=== PATIENT | male | born 1980 | race Caucasian/White ===

== ENCOUNTER 2021-02-10 05:02 | Emergency (ER) | payer OTHER ==
--- NOTE | 2021-02-10 05:14 | ED Physician Documentation ---
PD HPI HEADACHE - Stated complaint Stated Complaint: POS SZ, HEADACE - Chief complaint Chief Complaint: Neuro - History obtained from History obtained from: Patient, EMS - Additional information Additional information: Patient comes emergency department chief complaint of seizure-like activity x2 tonight. Patient states he does not have any recollection of it, but that his noticed that he was thrashing about in bed. She woke him up and the patient decided to go back to sleep and try to finish out the night. However, the shaking happened again and the patient's time the incident and took a video of it. It lasted approximately a minute and 40 seconds from the time the time was turned on to one was turned off. Patient has brought the video, which appears to show the patient laying on his side with his hand resting beside him on the pillow, and shaking occurring that seems to be coming more from the legs, which are hidden by the blankets and partially out of the frame of the picture. Patient denies any history of seizure disorder or any seizure-like activity. He has a history of a traumatic brain injury from his time in the , but no recent head injury. He states he has been sleeping well and has not been ill. He is on terbinafine for fungal toenail infection, but is not aware of seizure activity being a significant rash. No alcohol or drugs. The patient states that he did feel mentally "foggy" after the episode, and noticed that he had a bad headache. The patient does note that he has seen ENT for some sinus issues and was told that he has some sort of soft tissue growth up inside his right nasal passage, but he is not sure what this is, as the restaurant manager has been waiting to discuss it with him until he can get a sinus CT. This is awaiting prior authorization from [facility]. Patient is otherwise healthy and has no other complaints at this time. He does have a history of PTSD related to his time in the . 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 Review of Systems Ten Systems: 10 systems reviewed and negative Constitutional: reports: Reviewed and negative Eyes: reports: Reviewed and negative Ears: reports: Reviewed and negative Nose: reports: Reviewed and negative Throat: reports: Reviewed and negative Cardiac: reports: Reviewed and negative Respiratory: reports: Reviewed and negative GI: reports: Reviewed and negative : reports: Reviewed and negative Skin: reports: Reviewed and negative Musculoskeletal: reports: Reviewed and negative Neurologic: reports: Seizure Psychiatric: reports: Reviewed and negative Endocrine: reports: Reviewed and negative Immunocompromised: reports: Reviewed and negative PD PAST MEDICAL HISTORY - Present Medications Home Medications: Ambulatory Orders Medication Instructions Recorded Confirmed Terbinafine [Lamisil] 250 mg PO DAILY 02/10/21 02/10/21 - Allergies Allergies/Adverse Reactions: Allergies Allergy/AdvReac Type Severity Reaction Status Date / Time No Known Drug Allergies Allergy Verified 02/10/21 05:07 PD ED PE NORMAL - Vitals Vital signs reviewed: Yes - General General: Alert and oriented X 3, No acute distress, Well developed/nourished - HEENT HEENT: Atraumatic, PERRL, EOMI, Moist mucous membranes - Neck Neck: Supple, no meningeal sign - Cardiac Cardiac: RRR, No murmur, Strong equal pulses - Respiratory Respiratory: No respiratory distress, Clear bilaterally - Abdomen Abdomen: Soft, Non tender, Non distended - Derm Derm: Normal color, Warm and dry, No rash - Extremities Extremities: No deformity, No edema, No calf tenderness / cord - Neuro Neuro: Alert and oriented X 3, steel heater 2-12 intact, No motor deficit, No sensory deficit, Normal speech - Psych Psych: Normal mood, Normal affect Results - Vitals Vitals: Vital Signs - 24 hr 02/10/21 02/10/21 02/10/21 05:07 05:49 06:15 Temperature 36.5 C Heart Rate 90 85 Respiratory 16 18 Rate Blood Pressure 150/100 H 141/105 H 139/95 H O2 Saturation 99 99 Oxygen O2 Source Room air - EKG (time done) 0516 Rate: Rate (enter#) Rhythm: NSR (83) [place]: Normal Intervals: Normal MS QRS: Normal Ischemia: Normal ST segments Compare to prior EKG: Old EKG unavailable Computer interpretation: Agree with computer - Labs Labs: Laboratory Tests 02/10/21 02/10/21 05:25 05:25 WBC 8.0 RBC 5.43 Hgb 15.7 Hct 48.1 MCV 88.6 MCH 28.9 MCHC 32.6 RDW 13.6 Plt Count 400 MPV 9.0 Neut # (Auto) 3.8 Lymph # (Auto) 2.9 [place] # (Auto) 0.7 Eos # (Auto) 0.5 Baso # (Auto) 0.0 Absolute Nucleated RBC 0.00 Nucleated RBC % 0.0 Sodium 136 Potassium 3.9 Chloride 101 Carbon Dioxide 24 Anion Gap 11.0 BUN 13 Creatinine 1.0 Estimated GFR (MDRD) 83 L Glucose 99 Calcium 9.2 Total Bilirubin 0.7 AST 30 ALT 43 Alkaline Phosphatase 70 Total Protein 8.4 H Albumin 4.9 Globulin 3.5 Albumin/Globulin Ratio 1.4 Lipase 32 Ethyl Alcohol < 5.0 - Rads (name of study) CT head Radiology: Final report received, EMP read indepedently, See rad report (neg) CT sinuses Radiology: Final report received, EMP read indepedently, See rad report (Mild mucosal sinus disease with nasal septal deviation.) PD MEDICAL DECISION MAKING - ED course Complexity details: reviewed results, re-evaluated patient, considered differential, d/w patient ED course: The patient was given IV fluids and worked up with labs, EKG, and head CT. Departure - Departure Disposition: 01 Home, Self Care Clinical Impression: Witnessed seizure-like activity Condition: Stable Instructions: ED Seizure New Onset Unk Cause Comments: Your labs look fantastic, and your head CT is unremarkable. Your EKG also looks great. The activity noted on the video is somewhat atypical of a grand mal seizure and that yourUpper body and face/neck seem to be relatively unaffected. It is not clear what caused the episode she had this morning, but the next Step in investigation is to follow-up with neurology and your primary doctor to discuss having an EEG done. This is a brainwave study that looks for abnormalities in signal transmission in your brain that can indicate a predisposition to seizures. In general, with the first episode of seizure-like activity, we do not start patients on antiseizure medications, as the seizure activity is often not repeated for him long time if ever. Please be sure you drink lots of water and get plenty of rest and good food to eat. If you have further episodes like this, please seek medical reevaluation. You have been given a dose of medicine here in the emergency department to calm any potential hyperactivity of the nerves of your brain after this incident and allow them to settle back into baseline. Please call your doctor's office first thing today t o get a follow-up appointment set up.
[2021-02-10] MEDS ORDERED: SODIUM CHLORIDE 0.9% 1,000 ML IV STA (05:20)
[2021-02-10 05:31] LABS: BASOPHILS % (AUTO) 0.5 %; EOSINOPHILS # (AUTO) 0.5 10^3/uL (0.0-0.7); EOSINOPHILS % (AUTO) 6.1 %; HCT - HEMATOCRIT 48.1 % (42.0-52.0); HGB - HEMOGLOBIN 15.7 g/dL (14.0-18.0); LYMPHOCYTES # (AUTO) 2.9 10^3/uL (1.5-3.5); LYMPHOCYTES % (AUTO) 36.5 %; MEAN CORPUSCULAR HEMOGLOBIN 28.9 pg (27.0-31.0); MEAN CORPUSCULAR HGB CONC 32.6 g/dL (32.0-36.0); MEAN CORPUSCULAR VOLUME 88.6 fL (80.0-94.0); MONOCYTES # (AUTO) 0.7 10^3/uL (0.0-1.0); MONOCYTES % (AUTO) 8.7 %; NEUTROPHILS # (AUTO) 3.8 10^3/uL (1.5-6.6); PLT - PLATELET COUNT 400 10^3/uL (130-450); RED BLOOD COUNT 5.43 10^6/uL (4.70-6.10); RED CELL DISTRIBUTION WIDTH 13.6 % (12.0-15.0)
[2021-02-10 05:43] LABS: ALBUMIN 4.9 g/dL (3.2-5.5); ALBUMIN/GLOBULIN RATIO 1.4 (1.0-2.2); ALKALINE PHOSPHATASE 70 IU/L (42-121); ALT ALANINE AMINOTRANSFERASE 43 IU/L (10-60); AST ASPARTATE AMINOTRANSFERASE 30 IU/L (10-42); BILIRUBIN,TOTAL 0.7 mg/dL (0.2-1.0); BUN - BLOOD UREA NITROGEN 13 mg/dL (6-20); CALCIUM 9.2 mg/dL (8.5-10.3); CARBON DIOXIDE - CO2 24 mmol/L (21-32); CHLORIDE 101 mmol/L (101-111); ETOH - ETHANOL < 5.0 mg/dL; GFR - MDRD 83 (>89); GLUCOSE 99 mg/dL (70-100); LIPASE 32 U/L (22-51); POTASSIUM 3.9 mmol/L (3.5-5.0); SODIUM 136 mmol/L (135-145); TOTAL PROTEIN 8.4 g/dL (6.7-8.2)
[2021-02-10] MEDS ORDERED: IOVERSOL 320 100 ML VIAL IVP ONE (05:56)
[2021-02-10] MEDS ORDERED: diazePAM 5 MG TABLET PO STA (06:59)
[2021-02-10 07:10] VITALS: BP 129/92
--- NOTE | 2021-02-10 07:36 | CT Report ---
PROCEDURE: Sinuses INDICATIONS: nasal congestion, mass in R nasal passage TECHNIQUE: Noncontrast 3.0 mm axial images acquired from the frontal sinuses to the mid-sella, with coronal and sagittal reformats. For radiation dose reduction, the following was used: automated exposure control , adjustment of mA and/or kV according to patient size. COMPARISON: None. FINDINGS: Image quality: Excellent. Sinuses: There is minimal right and minimal to mild left maxillary mucosal thickening. Minimal scatt ered areas of mucosal thickening are present within the frontal and sphenoid sinuses. Minimal to mild scattered mucosal thickening is present within the ethmoid air cells. No fluid levels. No mass is id entified within the nasal cavity. However, there is mild appearance of protrusion of the turbinates a nd nasal cavity. Ostiomeatal Complexes: Ostiomeatal complexes are patent. There is narrowing of the left ostiomeatal complex secondary to prominent leftward nasal septal deviation and Rodney cell. There is narrowing of the right ostiomeatal complex secondary to a Rodney cell. Miscellaneous: Visualized intra-orbital contents are normal. There is aeration of the vertical conch a the middle turbinates bilaterally. There is mild hypertrophy of the left inferior nasal turbinate o f uncertain clinical significance.. Prominent leftward nasal septal deviation. IMPRESSION: Sinus disease as above. Narrowing of the ostiomeatal complexes secondary to nasal septal deviation and Rodney cells as above. No discrete nasal mass. However, there is noted to be protrusion of the nasal turbinates into the rig ht nasal cavity. The above findings are concordant with preliminary report. Reviewed by: Emily Melgar MD on 02/10/2021 7:35 AM PST Approved by: Emily Melgar MD on 02/10/2021 7:35 AM PST Station ID: [id number]
--- NOTE | 2021-02-10 07:38 | CT Report ---
PROCEDURE: HEAD WO INDICATIONS: seizure-like activity, first time TECHNIQUE: Noncontrast 4.5 mm thick angled axial sections acquired from the foramen magnum to the vertex. For r adiation dose reduction, the following was used: automated exposure control, adjustment of mA and/or kV according to patient size. COMPARISON: None. FINDINGS: Image quality: Excellent. CSF spaces: Basal cisterns are patent. No extra-axial fluid collections. Ventricles are normal in size and shape. Brain: No midline shift. No intracranial masses or hemorrhage. Louise-white matter interface is norm al. Skull and face: Calvarium and visualized facial bones are intact, without suspicious lesions. Sinuses: Visualized sinuses and mastoids are clear. IMPRESSION: 1. No acute intracranial process. The above findings are concordant with preliminary report. Reviewed by: Emily Melgar MD on 02/10/2021 7:36 AM [facility] Approved by: Emily Melgar MD on 02/10/2021 7:36 AM [facility] Station ID: [id number]
== END 2021-02-10 07:10 | disposition home or self-care (01) ==
LOC: ED 05:02
DX: R56.9 Unspecified convulsions (principal)
CPT/HCPCS: 36415; 70450; 70486; 80053; 80320; 83690; 85025; 93005; 99284; A9270; Q9967

== ENCOUNTER 2021-04-09 12:50 | Outpatient (CLI) | payer OTHER | END 2021-04-09 12:51 | disposition critical access hospital (66) | LOC: EMS 12:50 | DX: R56.9 Unspecified convulsions (principal) | CPT/HCPCS: A0425; A0429 ==

== ENCOUNTER 2021-04-09 13:20 | Emergency (ER) | payer OTHER ==
--- NOTE | 2021-04-09 13:51 | ED Physician Documentation ---
PD HPI SEIZURE - Stated complaint Stated Complaint: SZ - Chief complaint Chief Complaint: Neuro - History obtained from History obtained from: Patient, EMS - Additional information Additional information: 40yo male presents via EMS after a seizure. Had aura with headache followed by twitching and foaming at the mouth. Then had reported seizure with post ictal period. Had first sz 02/12, neg ED workup here. Had sz 2 weeks ago and again last night. 5 total since January. Hx TBI 2004 in the . Prehospital FSBS 77. No neuro followup yet. Recent weight loss undergoig w/u for that. PD PAST MEDICAL HISTORY - Past Medical History Cardiovascular: None Respiratory: None, Sleep apnea, CPAP use Neuro: Head injury : None HEENT: None Psych: Post traumatic stress disorder Musculoskeletal: None Derm: Other - Past Surgical History Past Surgical History: No Ortho: Shoulder arthroplasty, Spine surgery - Present Medications Home Medications: Ambulatory Orders Medication Instructions Recorded Confirmed Terbinafine [Lamisil] 250 mg PO DAILY 02/10/21 02/10/21 Divalproex Sodium [Depakote ER] 500 mg PO BID #180 tab 04/09/21 - Allergies Allergies/Adverse Reactions: Allergies Allergy/AdvReac Type Severity Reaction Status Date / Time No Known Drug Allergies Allergy Verified 02/10/21 05:07 - Social History Does the pt smoke?: No Smoking Status: Never smoker - POLST Patient has POLST: No PD ED PE NORMAL - Vitals Vital signs reviewed: Yes - General General: Alert and oriented X 3, No acute distress - HEENT HEENT: PERRL, EOMI, Other (no tongue lac) - Neck Neck: Supple, no meningeal sign, No bony TTP, C-Spine cleared by NEXUS criteria - Cardiac Cardiac: RRR, No murmur - Respiratory Respiratory: No respiratory distress, Clear bilaterally - Abdomen Abdomen: Normal bowel sounds, Soft, Non tender - Back Back: No CVA TTP, No spinal TTP - Derm Derm: Normal color, Warm and dry - Extremities Extremities: No edema, No calf tenderness / cord - Neuro Neuro: Alert and oriented X 3, No motor deficit, No sensory deficit, Normal spe ech Eye Opening: Spontaneous Motor: Obeys Commands Verbal: Oriented GCS Score: 15 - Psych Psych: Normal mood, Normal affect Results - Vitals Vitals: Vital Signs - 24 hr 04/09/21 04/09/21 13:23 13:33 Temperature 36.3 C L 36.5 C Heart Rate 60 60 Respiratory 23 23 Rate Blood Pressure 126/91 H 126/91 H O2 Saturation 100 100 Oxygen O2 Source Room air PD MEDICAL DECISION MAKING - ED course ED course: Patient seen at the bedside, he had some seizure-like activity while in the department. I was able to assess him during this time. He had high-frequency tonic-clonic shaking of the upper more than lower extremities. During this time his tone was high and I gave him some painful nailbed stimulus to the left hand. He immediately looked over the left hand and woke up and was answering questions coherently without any significant postictal period. Poke with the neurologist on-call for [facility] and he agrees that given my description the suspicion for PNES is high, and as such does not recommend Kepp ra but does recommend Depakote 500 mg twice daily for a week followed by 3 times daily pending follow-up. Departure - Departure Disposition: 01 Home, Self Care Clinical Impression: Witnessed seizure-like activity Condition: Good Record reviewed to determine appropriate education?: Yes Instructions: ED Seizure Recurrent Prescriptions: Divalproex Sodium [Depakote ER] 500 mg PO BID #180 tab Comments: As discussed, it is not clear today whether the episodes you are having are true seizures versus psychogenic nonepileptic seizures. That is a diagnosis closely related to PTSD but is treated slightly differently. I discussed the case by phone with the neurologist on-call for the neurology group you will be following up with. They recommended starting you on valproic acid/Depakote at a dose of 500milligrams twice a day, then going to 500 mg 3 times a day after a week. I am prescribing you enough to get you through to your appointment in May. Waiting continue to not drive until 6 months seizure-free or cleared by neurology. Return if worse. Your prescription was sent electronically to [facility] in [place]. You did receive a first dose through your IV today.
[2021-04-09] MEDS ORDERED: VALPROATE INJ 500 MG in SODIUM CHLORIDE 0.9% 100ML 100 ML IV STA (14:19)
[2021-04-09 15:36] VITALS: BP 114/83
== END 2021-04-09 15:41 | disposition home or self-care (01) ==
LOC: EDUNIT# → ED 13:20
DX: R56.9 Unspecified convulsions (principal); Z87.820 Personal history of traumatic brain injury
CPT/HCPCS: 96365; 99283